=== PATIENT | male | born 1950 | race Caucasian/White ===

== ENCOUNTER → 2016-09-03 | Outpatient (CLI) | payer OTHER | LOC: DACC 17:18 | PROVIDERS: ATTEND Physician Assistant | DX: B69.89 Cysticercosis of other sites (principal) | CPT/HCPCS: 87070; 87077; 87186; 87205 ==

== ENCOUNTER 2018-04-27 20:01 | Emergency (ER) | payer MEDICARE, OTHER ==
[2018-04-27 21:23] LABS: ABSOLUTE BASOPHILS # (AUTO) 0.1 10^3/uL (0.0-0.2); ABSOLUTE EOSINOPHILS # (AUTO) 0.1 10^3/uL (0.0-0.6); ABSOLUTE LYMPHOCYTES (AUTO) 2.5 10^3/uL (0.5-4.7); ABSOLUTE MONOCYTES (AUTO) 0.5 10^3/uL (0.1-1.4); ABSOLUTE NEUT (AUTO) 4.8 10^3/uL (1.7-8.2); BASOPHILS % (AUTO) 1.5 % (0-2); EOSINOPHILS % (AUTO) 1.2 % (0-6); HEMATOCRIT 42.2 % (37.9-51.0); HEMOGLOBIN 15.1 g/dL (13.5-17.0); LYMPHOCYTES % (AUTO) 30.5 % (13-45); MEAN CORPUSCULAR HEMOGLOBIN 29.4 pg (27.0-33.4); MEAN CORPUSCULAR HGB CONC 35.8 g/dL (32.0-36.0); MEAN CORPUSCULAR VOLUME 82 fl (80-97); MONOCYTES % (AUTO) 6.6 % (3-13); PLATELET COUNT 227 10^3/uL (150-450); RED BLOOD COUNT 5.13 10^6/uL (4.35-5.55); RED CELL DISTRIBUTION WIDTH 14.1 % (11.5-14.0); SEGMENTED NEUTROPHILS % (AUTO) 60.2 % (42-78); TOTAL CELLS COUNTED % (AUTO) 100 %
[2018-04-27 21:29] LABS: APPEARANCE,URINE CLEAR; BILIRUBIN,URINE NEGATIVE (NEGATIVE); COLOR,URINE YELLOW; GLUCOSE, URINE NEGATIVE (NEGATIVE); KETONES,URINE NEGATIVE (NEGATIVE); LEUKOCYTE ESTERASE,URINE NEGATIVE (NEGATIVE); NITRITE,URINE NEGATIVE (NEGATIVE); PROTEIN,URINE NEGATIVE (NEGATIVE); URINE SPECIFIC GRAVITY 1.029
[2018-04-27 21:33] LABS: ALANINE AMINOTRANSFERASE 25 U/L (21-72); ALBUMIN 4.2 g/dL (3.5-5.0); ALKALINE PHOSPHATASE 94 U/L (38-126); ANION GAP 11 (5-19); ASPARTATE AMINO TRANSFERASE 26 U/L (17-59); BILIRUBIN,DIRECT 0.4 mg/dL (0.0-0.4); BILIRUBIN,TOTAL 1.4 mg/dL (0.2-1.3); BLOOD UREA NITROGEN 18 mg/dL (7-20); CALCIUM 9.4 mg/dL (8.4-10.2); CARBON DIOXIDE 30 mmol/L (22-30); CHLORIDE 103 mmol/L (98-107); GLUCOSE 132 mg/dL (75-110); POTASSIUM 3.7 mmol/L (3.6-5.0); SODIUM 144.2 mmol/L (137-145); TOTAL PROTEIN 7.2 g/dL (6.3-8.2)
[2018-04-27] MEDS ORDERED: ONDANSETRON HCL INJ/PF 4 MG/2 ML SDV IV ONE (22:00)
[2018-04-27] MEDS ORDERED: HYDROMORPHONE HCL INJ/PF 2 MG/ML AMPULE IV ONE (22:00)
--- NOTE | 2018-04-27 22:54 | RADIOLOGY REPORT (SQ) ---
EXAM DESCRIPTION: CT ABDOMEN PELVIS WITH IV CONTRAST COMPLETED DATE/TME: 04/27/2018 21:59 CLINICAL HISTORY: 67 years, Male, r flank pain COMPARISON: None. TECHNIQUE: 618 Images stored on PACS. All CT scanners at this facility use dose modulation, iterative reconstruction, and/or weight based dosing when appropriate to reduce radiation dose to as low as reasonably achievable (ALARA). [facility]: Dose Right [facility]: CareDose [facility]: Dose Right [facility]: Teradose 4D [facility]: WorldWinger LIMITATIONS: None. FINDINGS: The heart appears mildly enlarged. Limited evaluation of the lung bases is otherwise unremarkable. Osseous structures of the abdomen/pelvis are grossly intact. Degenerative changes of the lumbar spine. Pars defects at the L5-S1 level with grade 1 spondylolisthesis. Fatty infiltrative change to the liver. No focal liver lesions. The gallbladder is present, slightly contracted. Gallstones are suggested. The spleen, adrenal glands, pancreas, kidneys are unremarkable. Moderate atheromatous change. No evidence for bowel obstruction. No free air or free fluid. The appendix is not well seen. No pericecal inflammation. IMPRESSION: Fatty infiltrative change to the liver. Moderate atheromatous change. Cholelithiasis. TECHNICAL DOCUMENTATION: Quality ID # 436: Final reports with documentation of one or more dose reduction techniques (e.g., Automated exposure control, adjustment of the mA and/or kV according to patient size, use of iterative reconstruction technique) 2010 [employer]- All Rights Reserved
--- NOTE | 2018-04-28 01:03 | RADIOLOGY REPORT (SQ) ---
EXAM DESCRIPTION: US ABDOMEN LIMITED COMPLETED DATE/TME: 04/27/2018 23:08 CLINICAL HISTORY: 67 years, Male, right flank pain COMPARISON: CT today's date TECHNIQUE: Limited ultrasound of the right upper quadrant LIMITATIONS: None. FINDINGS: Echogenic appearance to the liver consistent with fatty infiltrative change. Mobile, shadowing stones within the gallbladder lumen. No gallbladder wall thickening or pericholecystic fluid. The CBD measures 1.7 mm. Visualized portions of the right kidney are unremarkable. No ascites in the right upper quadrant. The visualized abdominal aorta is unremarkable. Pancreas not well seen due to bowel gas. IMPRESSION: Fatty infiltrative change to the liver. Cholelithiasis. No sonographic evidence for cholecystitis 2010 [employer]- All Rights Reserved
--- NOTE | 2018-04-28 01:27 | ER Document Report ---
ED General - General Chief Complaint: Flank Pain Stated Complaint: LOWER BACK PAIN Time Seen by Provider: 04/27/18 21:25 Mode of Arrival: Ambulatory Information source: Patient, Relative, [facility] Records Notes: 67-year-old male with atrial fibrillation, hypertension, previous kidney stones presents with complaint of right flank pain that started 3 days prior to arrival with worsening of pain today. Patient describes the pain as stabbing, constant and associated with nausea but no vomiting. Patient denies any injury including lifting or falling. He denies any fever, chills, chest pain, shortness of breath. He denies any aggravating or relieving factors. He has tried ice, heat without relief. He has tried [id number] Tylenol without relief. TRAVEL OUTSIDE OF THE [place] IN LAST 30 DAYS: No - HPI Onset: Other Onset/Duration: Gradual, Persistent, Worse Quality of pain: Stabbing, Throbbing Severity: Moderate Associated symptoms: Nausea. denies: Chest pain, Diarrhea, Fever, Headache, Vomiting, Shortness of breath, Sweating Exacerbated by: Denies Relieved by: Denies Similar symptoms previously: Yes Recently seen / treated by doctor: No - Related Data Allergies/Adverse Reactions: No Known Allergies Allergy (Unverified 04/09/11 03:21) Past Medical History - General Information source: Patient - Social History Smoking Status: Never Smoker Chew tobacco use (# tins/day): No Frequency of alcohol use: None Drug Abuse: None Lives with: Spouse/Significant other Family History: Reviewed & Not Pertinent Patient has suicidal ideation: No Patient has homicidal ideation: No - Past Medical History Cardiac Medical History: Reports: Hx Atrial Fibrillation, Hx Coronary Artery Disease, Hx Hypercholesterolemia, Hx Hypertension Pulmonary Medical History: Reports: Hx Pneumonia Renal/ Medical History: Reports: Hx Kidney Stones. Denies: Hx Peritoneal Dialysis Review of Systems - Review of Systems Notes: REVIEW OF SYSTEMS: CONSTITUTIONAL : Denies fever, chills, or sweats. Denies recent illness. Denies weight loss, recent hospitalizations. EENT: Denies visual changes, eye pain. Denies sore throat, oral lesions, difficulty swallowing. CARDIOVASCULAR: Denies chest pain. Denies palpitations. Denies lower extremity edema. RESPIRATORY: Denies cough. Denies shortness of breath, wheezing. GASTROINTESTINAL: Denies abdominal pain or distention. Denies nausea, vomiting , or diarrhea. Denies blood in vomitus, stools, or per rectum. Denies black, tarry stools. Denies constipation. GENITOURINARY: Denies difficulty urinating, painful urination, frequency, blood in urine, testicular pain or penile discharge. MUSCULOSKELETAL: Denies neck pain or stiffness. Denies joint pain or swelling. SKIN: Denies rash, lesions or sores. HEMATOLOGIC : Denies easy bruising or bleeding. LYMPHATIC: Denies swollen glands. NEUROLOGICAL: Denies confusion or altered mental status. Denies loss of consciousness. Denies dizziness or lightheadedness. Denies headache. Denies weakness or paralysis. Denies problems difficulty with ambulation, slurred speech. Denies sensory loss, numbness, or tingling. Denies seizures. PSYCHIATRIC: Denies anxiety or stress. Denies depression, suicidal ideation, or Physical Exam - Vital signs Vitals: Temp Pulse Resp BP Pulse Ox 97.7 F 94 18 149/82 H 96 04/27/18 20:15 04/27/18 20:15 04/27/18 20:15 04/27/18 20:15 04/27/18 20:15 - Notes Notes: PHYSICAL EXAMINATION: GENERAL: Well-appearing, well-nourished and in no acute distress. HEAD: Atraumatic, normocephalic. EYES: Pupils equal round and reactive to light, extraocular movements intact, sclera anicteric, conjunctiva are normal. ENT: Nares patent, oropharynx clear without exudates. Moist mucous membranes. NECK: Normal range of motion, supple without lymphadenopathy LUNGS: Breath sounds clear to auscultation bilaterally and equal. No wheezes rales or rhonchi. HEART: Regular rate and rhythm without murmurs ABDOMEN: Soft, nontender, nondistended abdomen. No guarding, no rebound. No masses appreciated. Musculoskeletal: Normal range of motion, no pitting or edema. No cyanosis. Tenderness along the paraspinal musculature of the lumbar spine on the right. No reproducible CVA tenderness. No rash. NEUROLOGICAL: Cranial nerves grossly intact. Normal speech, normal gait. Normal sensory, motor exams PSYCH: Normal mood, normal affect. SKIN: Warm, Dry, normal turgor, no rashes or lesions noted. Course - Re-evaluation Re-evalutation: Laboratory 04/27/18 04/27/18 04/27/18 21:05 21:05 21:05 WBC 8.0 RBC 5.13 Hgb 15.1 Hct 42.2 MCV 82 MCH 29.4 MCHC 35.8 RDW 14.1 H Plt Count 227 Seg Neutrophils % 60.2 Lymphocytes % 30.5 Monocytes % 6.6 Eosinophils % 1.2 Basophils % 1.5 Absolute Neutrophils 4.8 Absolute Lymphocytes 2.5 Absolute Monocytes 0.5 Absolute Eosinophils 0.1 Absolute Basophils 0.1 Sodium 144.2 Potassium 3.7 Chloride 103 Carbon Dioxide 30 Anion Gap 11 BUN 18 Creatinine 0.83 Est GFR ( Amer) > 60 Est GFR (Non-Af Amer) > 60 Glucose 132 H Calcium 9.4 Total Bilirubin 1.4 H Direct Bilirubin 0.4 Neonat Total Bilirubin Not Reportable Neonat Direct Bilirubin Not Reportable Neonat Indirect Bili Not Reportable AST 26 ALT 25 Alkaline Phosphatase 94 Total Protein 7.2 Albumin 4.2 Lipase 118.0 Urine Color YELLOW Urine Appearance CLEAR Urine pH 5.0 Ur Specific [place] 1.029 Urine Protein NEGATIVE Urine Glucose (UA) NEGATIVE Urine Ketones NEGATIVE Urine Blood NEGATIVE Urine Nitrite NEGATIVE Urine Bilirubin NEGATIVE Urine Urobilinogen 4.0 H Ur Leukocyte Esterase NEGATIVE Urine WBC (Auto) 1 Squamous Epi Cells Auto <1 Urine Mucus (Auto) MANY Urine Ascorbic Acid NEGATIVE Abdomen/Pelvis CT 04/27/18 21:59 IMPRESSION: Fatty infiltrative change to the liver. Moderate atheromatous change. Cholelithiasis. TECHNICAL DOCUMENTATION: Quality ID # 436: Final reports with documentation of one or more dose reduction techniques (e.g., Automated exposure control, adjustment of the mA and/or kV according to patient size, use of iterative reconstruction technique) 2010 [employer]- All Rights Reserved Abdomen Ultrasound 04/27/18 23:08 IMPRESSION: Fatty infiltrative change to the liver. Cholelithiasis. No sonographic evidence for cholecystitis 2010 [employer]- All Rights Reserved 67-year-old male with atrial fibrillation, hypertension, previous kidney stones presents with complaint of right flank pain that started 3 days prior to arrival with worsening of pain today. Patient describes the pain as stabbing, constant and associated with nausea but no vomiting. Vital signs reviewed upon arrival and within normal limits. Patient does not appear toxic or dehydrated. He does appear to be in significant pain. Exam is significant for right- sided paraspinal tenderness of the lumbar spine. There is no right CVA tenderness. Pain is reproduced with minimal movement. CBC is without leukocytosis or anemia. CMP shows no significant electrolyte abnormalities, normal renal, liver function. Lipase within normal limits. Imaging reveals cholelithiasis without evidence of cholecystitis. Patient also does have a fatty change to his liver. Exam, imaging and labs are not indicative of cholecystitis, pancreatitis, appendicitis, urolithiasis, AAA, ACS. At this time I feel the patient's pain is likely more consistent with musculoskeletal flank pain. 04/28/18 01:25 Patient reevaluated and states that his pain has greatly improved. CT of the abdomen and pelvis were obtained and showed concern for gallstones. Patient was provided a copy of his imaging results and lab work that was performed today. Discussed that gallbladder removal would likely be required at some point but could be done as an outpatient. Advised that he first contact his primary care physician office to see if he requires a referral to surgery. Both and are comfortable with discharge home. Patient was discharged home with pain medication as well as nausea medication. 04/28/18 05:21 - Vital Signs Vital signs: Temp Pulse Resp BP Pulse Ox 97.9 F 71 17 121/76 94 04/28/18 02:05 04/28/18 02:05 04/28/18 02:05 04/28/18 02:05 04/28/18 02:05 - Laboratory Result Diagrams: 04/27/18 21:05 04/27/18 21:05 Laboratory results interpreted by me: 04/27/18 04/27/18 04/27/18 21:05 21:05 21:05 RDW 14.1 H Glucose 132 H Total Bilirubin 1.4 H Urine Urobilinogen 4.0 H - Diagnostic Test Radiology reviewed: Image reviewed, Reports reviewed Discharge - Discharge Clinical Impression: Right flank pain, Fatty liver Cholelithiasis Qualifiers: Cholelithiasis location: gallbladder Cholecystitis presence: without cholecystitis Biliary obstruction: without biliary obstruction Qualified Code(s) : K80.20 - Calculus of gallbladder without cholecystitis without obstruction Hypertension Qualifiers: Hypertension type: unspecified Qualified Code(s): I10 - Essential (primary) hypertension Low back pain Qualifiers: Chronicity: acute Back pain laterality: right Sciatica presence: without sciatica Qualified Code(s): M54.5 - Low back pain Condition: Good Disposition: HOME, SELF-CARE Instructions: Flank Pain ([facility]), Gallbladder Disease ([facility]), Low-Fat Diet ([facility]), Low Back Pain ([facility]) Additional Instructions: Your ultrasound and history is most consistent with symptomatic cholelithiasis. This means that you have stones in your gallbladder that are causing pain when you eat fatty foods. You will likely need to have your gallbladder out in the coming weeks to prevent further pain. The best thing you can do at this time is to avoid fat-containing foods which will trigger your symptoms. Please contact the general surgeon listed in your discharge paperwork at your earliest ability for consultation regarding removal of your gallbladder. Please return to the emergency department if you develop persistent pain in your abdomen that will not go away, persistent vomiting, fever greater than 100.4F, pass out, or have any other symptoms that are concerning to you. Prescriptions: Hydrocodone/Acetaminophen [[place] 5-325 mg Tablet] 1 tab PO Q6H #12 tablet Ondansetron [Zofran Odt 4 mg Tablet] 1 - 2 tab PO Q4H PRN #15 tab.rapdis PRN Reason: For Nausea/Vomiting Forms: Elevated Blood Pressure Referrals: DOMINIK SARABIA MD [Primary Care Provider] - Follow up in 3-5 days JESSICA JUARES MD [ACTIVE STAFF] - Follow up in 3-5 days
[2018-04-28] MEDS ORDERED: FENTANYL CITRATE INJ/PF 100 MCG/2 ML AMPUL IV ONE (01:40)
[2018-04-28 02:15] VITALS: BP 121/76
== END 2018-04-28 02:15 | disposition home or self-care (01) ==
LOC: ER 20:01
DX: K76.0 Fatty (change of) liver, not elsewhere classified (principal); K80.20 Calculus of gallbladder without cholecystitis without obstruction; R10.9 Unspecified abdominal pain; M54.5 Low back pain; R11.0 Nausea; I48.91 Unspecified atrial fibrillation; E78.00 Pure hypercholesterolemia, unspecified; I10 Essential (primary) hypertension; Z87.442 Personal history of urinary calculi
CPT/HCPCS: 99284; 96374; 96375; 36415; 83690; 85025; 80053; 81001; 76705; 74177; J3010; J1170; J2405

== ENCOUNTER 2018-05-04 18:50 | Emergency (ER) | payer MEDICARE, OTHER ==
--- NOTE | 2018-05-04 19:16 | ER Document Report ---
ED Fall - General Mode of Arrival: Medic Information source: Patient TRAVEL OUTSIDE OF THE [place] IN LAST 30 DAYS: No <GONZÁLEZ HAIDER - Last Filed: 05/04/18 19:44> <SYLVIA RAY - Last Filed: 05/04/18 23:15> - General Chief Complaint: Fall Injury Stated Complaint: FALL/BACK, HEAD AND HAND PAIN Time Seen by Provider: 05/04/18 19:01 Notes: 67-year-old male on [place] who presents to the emergency department today after falling off a roof just prior to arrival. Patient states he was helping someone put on a metal roof, it was turning to dusk, and there was moisture in the air which caused the roof to become slippery. Patient states that after falling off the roof he landed on his feet and then fell backwards hitting the back of his head on the ground. Patient states the ground was soft as it has been raining in the area recently so he is not concerned with the impact his head made. Patient complains of pain to the center of his back and his right wrist which was fractured in the . Patient denies any leg/ankle pain. ( GONZÁLEZ HAIDER) - Related data Allergies/Adverse Reactions: No Known Allergies Allergy (Unverified 04/09/11 03:21) Past Medical History - General Information source: Patient - Social History Smoking Status: Unknown if Ever Smoked Cigarette use (# per day): No Frequency of alcohol use: None Drug Abuse: None Lives with: Family Family History: Reviewed & Not Pertinent Patient has suicidal ideation: No Patient has homicidal ideation: No - Past Medical History Cardiac Medical History: Reports: Hx Atrial Fibrillation, Hx Coronary Artery Disease, Hx Hypercholesterolemia, Hx Hypertension Pulmonary Medical History: Reports: Hx Pneumonia Renal/ Medical History: Reports: Hx Kidney Stones Surgical Hx: Negative <GONZÁLEZ HAIDER - Last Filed: 05/04/18 19:44> Review of Systems - Review of Systems Constitutional: No symptoms reported EENT: No symptoms reported Cardiovascular: No symptoms reported Respiratory: No symptoms reported Gastrointestinal: No symptoms reported Genitourinary: No symptoms reported Male Genitourinary: No symptoms reported Musculoskeletal: See HPI, Back pain, Joint pain - right wrist Skin: See HPI, Other - left finger tips, superficial Hematologic/Lymphatic: No symptoms reported Neurological/Psychological: No symptoms reported -: Yes All other systems reviewed and negative <VITALYGONZÁLEZ - Last Filed: 05/04/18 19:44> Physical Exam <VITALYGONZÁLEZ - Last Filed: 05/04/18 19:44> <FLORSYLVIA - Last Filed: 05/04/18 23:15> - Vital signs Vitals: Temp Pulse Resp BP Pulse Ox 97.8 F 82 16 155/93 H 98 05/04/18 18:52 05/04/18 18:52 05/04/18 18:52 05/04/18 18:52 05/04/18 18:52 - Notes Notes: Physical Exam: General: Alert, appears well. HEENT: Normocephalic. Atraumatic. PERRL. Extraocular movements intact. Oropharynx clear. Neck: Supple. Non-tender. Respiratory: No respiratory distress. Clear and equal breath sounds bilaterally. Cardiovascular: Regular rate and rhythm. Abdominal: Normal Inspection. Non-tender. No distension. Normal Bowel Sounds. Back: Tenderness with palpation over the upper lumbar spine and lower thoracic spine. Tenderness with palpation over the right lower lumbar sacral area where his chronic pain is, not worse than baseline today according to him. No deformity or step off. Extremities: Moves all four extremities. Upper extremities: Right wrist is swollen over the ulnar styloid and lateral to that with associated tenderness on palpation. Lower extremities: Normal inspection. No edema. Normal ROM. Neurological: Normal cognition. AAOx4. Normal speech. Psychological: Normal affect. Normal Mood. Skin: Bandaids on left 2-4 fingers with superficial lacerations/abrasions to all digits on LUE. (GONZÁLEZ HAIDER) Course - Diagnostic Test Radiology reviewed: Image reviewed, Reports reviewed - Right wrist x-ray does not show acute fracture. Shows old chronic bony changes from prior trauma. 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 CT scan of the thoracic spine is unremarkable. CT scan of the lumbar spine shows acute 30% compression fracture of L2 without retropulsed fragments. <SYLVIA RAY - Last Filed: 05/04/18 23:15> - Vital Signs Vital signs: Temp Pulse Resp BP Pulse Ox 97.8 F 82 18 123/77 93 05/04/18 18:52 05/04/18 18:52 05/04/18 23:01 05/04/18 23:01 05/04/18 23:01 Procedures - Laceration/Wound Repair Left Distal Finger 2nd digit Time completed: 22:53 Wound length (cm): 2 Wound's Depth, Shape: Into muscle, Irregular, Flap Laceration pre-procedure: Sterile drapes applied, Shur-Clens applied Anesthetic type: 1% Lidocaine Volume Anesthetic (mLs): 6 - Metacarpal block Wound explored: Clean, No foreign body removed Irrigated w/ Saline (mLs): 20 Wound Debrided: Minimal Wound Repaired With: Sutures Suture Size/Type: 5:0 Number of Sutures: 6 Layer Closure?: No Post-procedure wound care: Sterile dressing applied Post-procedure NV exam normal: Yes Complications: No <SYLVIA RAY - Last Filed: 05/04/18 23:15> Discharge <GONZÁLEZ HAIDER - Last Filed: 05/04/18 19:44> <SYLVIA RAY - Last Filed: 05/04/18 23:15> - Discharge Clinical Impression: Fall from roof Qualifiers: Encounter type: initial encounter Qualified Code(s): W13.2XXA - Fall from, out of or through roof, initial encounter Right wrist sprain Qualifiers: Encounter type: initial encounter Qualified Code(s): S63.501A - Unspecified sprain of right wrist, initial encounter Compression fracture of L2 lumbar vertebra Qualifiers: Encounter type: initial encounter Fracture type: closed Qualified Code(s): S32.020A - Wedge compression fracture of second lumbar vertebra, initial encounter for closed fracture Laceration of fingers without complication Qualifiers: Encounter type: initial encounter Qualified Code(s): S61.219A - Laceration without foreign body of unspecified finger without damage to nail, initial encounter Condition: Stable Disposition: HOME, SELF-CARE Additional Instructions: Compression Fracture of the Spine: A vertebra within your spine has been crushed. This is called a "compression fracture." Typically, this type of injury is caused by a sudden bending or compressing force such as an auto accident or a fall. Although painful, the fracture is not serious. You can expect to recover fully within a few weeks. The treatment of this fracture is essentially the same as for a severe back strain. Muscle relaxers or antiinflammatory medication may be prescribed. You should rest in bed for a few days until the pain eases, then begin light activity. A re-check will determine when you are ready to resume work or sports. Ice pack the painful area at first. After you are active again, you may want to apply gentle heat intermittently to relax sore muscles. You can continue with ice packs if you find them helpful in reducing muscle pain. Call the doctor or return at once if you develop radiating pains, muscle weakness, problems with the bladder or bowels, or numbness. Wrist Sprain: Your wrist injury is a sprain. A sprain results from stretching or tearing of the ligaments, usually from a twisting injury. The ligaments will require time and protection in order to heal properly. Many sprains are quite disabling and should be taken seriously. The usual initial treatment of sprains is cold packs, elevation, and rest of the injured area. Your physician has assessed the seriousness of your ligament injury, and has outlined a treatment plan. Understand that this treatment may change, depending on how you progress. If a re-examination was recommended, it is important that you follow up as instructed. Call the doctor any time if there is severe pain, numbness, or loss of function in the injured area. Hand Laceration: Laceration of the fingers can present special problems. It may be difficult to keep the wound dry. Motion of the fingers can disturb the healing edges. Your work may involve exposure to damaging chemicals or water. Keep the wound clean and dry. If you can't keep the cut dry, undisturbed, and free of chemical exposure, please discuss this with the doctor. If any water or chemical gets onto the dressing, remove it, blot the wound dry, then apply a fresh bandage. Dressings should be changed every day. If you feel the stitches pulling as you move the hand, a splint or other form of protection is needed. If any signs of infection occur (swelling, redness, increasing tenderness, red streaks, tender lumps in the armpit, or fever), see the doctor immediately. Take the pain medications as needed. Take a stool softener to prevent constipation. Limit activity until the back is feeling better. A back brace may provide some improvement in your pain and make it easier to get up and down. Use the wrist splint for the next several days to protect your right wrist. Keep the finger wounds clean and dry. Have the sutures removed in 7-10 days. Return sooner if any signs of infection. Follow-up with your primary care provider this week to recheck your back and for pain management as needed. RETURN TO THE EMERGENCY ROOM IF ANY NEW OR WORSENING SYMPTOMS. Prescriptions: Oxycodone HCl/Acetaminophen [Percocet 5-325 mg Tablet] 1 - 2 tab PO ASDIR PRN # 15 tablet PRN Reason: Referrals: DOMINIK SARABIA MD [NO LOCAL MD] - Follow up in 3-5 days Scribe Attestation: 05/04/18 19:23 I personally performed the services described in the documentation, reviewed and edited the documentation which was dictated to the scribe in my presence, and it accurately records my words and actions. (SYLVIA RAY) Scribe Documentation - Scribe Written by Scribe:: Mak Meyer, [id number] acting as scribe for :: Flor <GONZÁLEZ HAIDER - Last Filed: 05/04/18 19:44>
--- NOTE | 2018-05-04 19:53 | RADIOLOGY REPORT (SQ) ---
EXAM DESCRIPTION: WRIST RIGHT 3 VIEWS COMPLETED DATE/TIME: 05/04/2018 7:40 pm REASON FOR STUDY: Fell off roof COMPARISON: None. NUMBER OF VIEWS: Three views. TECHNIQUE: AP, lateral, and oblique radiographic images acquired of the right wrist. LIMITATIONS: None. FINDINGS: MINERALIZATION: Normal. BONES: No acute fracture or dislocation. There is bony deformity of the distal ulna and radius with a separate bony ossicle being identified at the level of the ulnar styloid process consistent with pr evious trauma. There is bony deformity of the 5th metacarpal consistent with previous trauma. SOFT TISSUES: No soft tissue swelling. No foreign body. OTHER: No other significant finding. IMPRESSION: No evidence for acute fracture or dislocation. Bony deformity of the distal ulna, radiu s, and 5th metacarpal consistent with previous trauma. Other findings as noted above. TECHNICAL DOCUMENTATION: JOB ID: [id number] [employer]- All Rights Reserved Reading location - IP/workstation name: [email or web address]
[2018-05-04] MEDS ORDERED: MORPHINE SULFATE 10 MG/ML INJ IV ONE ×2 (20:00→23:05)
[2018-05-04] MEDS ORDERED: ONDANSETRON HCL INJ/PF 4 MG/2 ML SDV IV ONE ×2 (20:00→23:05)
--- NOTE | 2018-05-04 20:05 | RADIOLOGY REPORT (SQ) ---
EXAM DESCRIPTION: CT HEAD WITHOUT COMPLETED DATE/TIME: 05/04/2018 7:47 pm REASON FOR STUDY: Fell off roof,on Xarelto,hit head,pain L-spine T-s COMPARISON: None. TECHNIQUE: Axial images acquired through the brain without intravenous contrast. Images reviewed wi th bone, brain and subdural windows. Additional sagittal and coronal reconstructions were generated. Images stored on PACS. All CT scanners at this facility use dose modulation, iterative reconstruction, and/or weight based d osing when appropriate to reduce radiation dose to as low as reasonably achievable (ALARA). [facility]: Dose Right [facility]: CareDose [facility]: Dose Right [facility]: Teradose 4D [facility]: [employer] RADIATION DOSE: CT Rad equipment meets quality standard of care and radiation dose reduction techniq ues were employed. CTDIvol: 53.2 mGy. DLP: 991 mGy-cm. mGy. LIMITATIONS: None. FINDINGS: VENTRICLES: Normal size and contour. CEREBRUM: No masses. No hemorrhage. No midline shift. No evidence for acute infarction. Normal gra y/white matter differentiation. No areas of low density in the white matter. CEREBELLUM: No masses. No hemorrhage. No alteration of density. No evidence for acute infarction. EXTRAAXIAL SPACES: No fluid collections. No masses. ORBITS AND GLOBE: No intra- or extraconal masses. Normal contour of globe without masses. CALVARIUM: No fracture. PARANASAL SINUSES: There is almost complete opacification of the left sphenoid sinus. SOFT TISSUES: No mass or hematoma. OTHER: No other significant finding. IMPRESSION: No significant intracranial abnormalities were identified. Sinus disease as noted above . Other findings as noted above EVIDENCE OF ACUTE STROKE: NO. COMMENT: Quality ID # 436: Final reports with documentation of one or more dose reduction techniques (e.g., Automated exposure control, adjustment of the mA and/or kV according to patient size, use of iterative reconstruction technique) TECHNICAL DOCUMENTATION: JOB ID: [id number] 1900 [employer]- All Rights Reserved Reading location - IP/workstation name: [email or web address]
--- NOTE | 2018-05-04 20:57 | RADIOLOGY REPORT (SQ) ---
EXAM DESCRIPTION: CT LUMBAR SPINE WITHOUT COMPLETED DATE/TIME: 05/04/2018 7:47 pm REASON FOR STUDY: Fell off roof,on Xarelto,hit head,pain L-spine T-s COMPARISON: None. TECHNIQUE: Axial images acquired through the lumbar spine without intravenous contrast. Images revi ewed with lung, soft tissue and bone windows. Reconstructed coronal and sagittal MPR images reviewed . All images stored on PACS. All CT scanners at this facility use dose modulation, iterative reconstruction, and/or weight based d osing when appropriate to reduce radiation dose to as low as reasonably achievable (ALARA). [facility]: Dose Right [facility]: CareDose [facility]: Dose Right [facility]: Teradose 4D [facility]: [employer] RADIATION DOSE: mGy. LIMITATIONS: None. FINDINGS: SEGMENTATION: Normal. No transitional anatomy. ALIGNMENT: Grade 1 anterolisthesis of L5 on S1. Bilateral pars defects at this level. VERTEBRAL BODIES: Acute compression changes involving the L2 vertebral body with approximately 30% lo ss of height. No retropulsion of fragments into the spinal canal. DISCS: No significant protrusions. Study limited by lack of intrathecal contrast. PEDICLES, TRANSVERSE PROCESSES: No fractures. No dislocation. No acute findings. FACETS, POSTERIOR ELEMENTS: Bilateral pars defects at L5. HARDWARE: None in the spine. VISUALIZED RIBS: No fractures. SOFT TISSUES: No significant or acute finding in adjacent soft tissues. OTHER: No other significant finding. IMPRESSION: Acute compression changes at L2 as described. Anterolisthesis of L5 on S1 with bilatera l pars defects. TECHNICAL DOCUMENTATION: JOB ID: [id number] Quality ID # [id number]: Final reports with documentation of one or more dose reduction techniques (e.g., Au tomated exposure control, adjustment of the mA and/or kV according to patient size, use of iterative reconstruction technique) 2010 [employer]- All Rights Reserved Reading location - IP/workstation name: [email or web address]
--- NOTE | 2018-05-04 21:02 | RADIOLOGY REPORT (SQ) ---
EXAM DESCRIPTION: CT THORACIC SPINE WITHOUT COMPLETED DATE/TIME: 05/04/2018 7:47 pm REASON FOR STUDY: Fell off roof,on Xarelto,hit head,pain L-spine T-s COMPARISON: None. TECHNIQUE: Axial images acquired through the thoracic spine without intravenous contrast. Images re viewed with lung, soft tissue and bone windows. Reconstructed coronal and sagittal MPR images review ed. Images stored on PACS. All CT scanners at this facility use dose modulation, iterative reconstruction, and/or weight based d osing when appropriate to reduce radiation dose to as low as reasonably achievable (ALARA). [facility]: Dose Right [facility]: CareDose [facility]: Dose Right [facility]: Teradose 4D [facility]: [employer] RADIATION DOSE: CT Rad equipment meets quality standard of care and radiation dose reduction techniq ues were employed. CTDIvol: 93.2 mGy. DLP: 3838 mGy-cm. mGy. LIMITATIONS: None. FINDINGS: VISUALIZED LUNGS: No acute opacities. No pneumothorax. SOFT TISSUES: No soft tissue swelling. No masses. VERTEBRAL BODIES: No fractures. No dislocation. No acute findings. DISCS: Disc spaces are fairly well maintained. There are bridging osteophytes extensively in the mid and lower thoracic spine. ALIGNMENT: Normal. TRANSVERSE PROCESSES, POSTERIOR ELEMENTS: No fractures. No dislocation. No acute findings. HARDWARE: None in the spine. VISUALIZED RIBS: No fractures. OTHER: No other significant finding. IMPRESSION: Thoracic spondylosis. No acute findings. TECHNICAL DOCUMENTATION: JOB ID: [id number] Quality ID # [id number]: Final reports with documentation of one or more dose reduction techniques (e.g., Au tomated exposure control, adjustment of the mA and/or kV according to patient size, use of iterative reconstruction technique) 2010 [employer]- All Rights Reserved Reading location - IP/workstation name: [email or web address]
[2018-05-04] MEDS ORDERED: LIDOCAINE 1% INJ-PF (10 MG/ML) 30 ML SDV INJ ONE (21:17)
[2018-05-04] MEDS ORDERED: HYDROCODONE/ACETAMINOPHEN 5-325 MG (6 TAB/ER DISP) PO PRN (23:04)
[2018-05-04 23:14] VITALS: BP 123/77
== END 2018-05-04 23:37 | disposition home or self-care (01) ==
LOC: ER 18:50
PROC: 0HQGXZZ Repair Left Hand Skin, External Approach (ICD-10-PCS; principal; 2018-05-04)
DX: S32.020A Wedge compression fracture of second lumbar vertebra, initial encounter for closed fracture (principal); S61.219A Laceration without foreign body of unspecified finger without damage to nail, initial encounter; S63.501A Unspecified sprain of right wrist, initial encounter; M54.9 Dorsalgia, unspecified; R51 Headache; W13.2XXA Fall from, out of or through roof, initial encounter; M25.531 Pain in right wrist; I25.10 Atherosclerotic heart disease of native coronary artery without angina pectoris; I10 Essential (primary) hypertension
CPT/HCPCS: 96376; 99284; 96374; 96375; 73110; 70450; 72128; 72131; 12001; J3490; J2270; J2405; A9270

== ENCOUNTER 2019-06-18 15:21 | Emergency (ER) | payer MEDICARE, OTHER ==
[2019-06-18] MEDS ORDERED: NITROGLYCERIN 0.4 MG/TAB 25 TAB/BOTTLE SL ONE (16:08)
[2019-06-18] MEDS ORDERED: ASPIRIN 81 MG TABLET, CHEWABLE PO ONE (16:08)
--- NOTE | 2019-06-18 16:10 | ER Document Report ---
ED Medical Screen (RME) - General Chief Complaint: Chest Pain Stated Complaint: CHEST PAIN Time Seen by Provider: 06/18/19 16:03 Primary Care Provider: DEIDRE SMITH MD [Primary Care Provider] - Follow up as needed Notes: Patient is 69-year-old male who presents to the emergency department with a chief complaint of chest pain. His pain started around 1430 this afternoon after eating a turkey sandwich. He states that the pain is in the middle of his chest and it also radiates to the right side of his jaw. He states that he is having some tingling in his right arm. Patient has a history of atrial fibrillation, hypertension, and was on Xarelto, but stopped his Xarelto in April due to the cost. Denies any fever or cough. Exam: S1, S2. Breath sounds clear throughout. I have greeted and performed a rapid initial assessment of this patient. A comprehensive ED assessment and evaluation of the patient, analysis of test results and completion of medical decision making process will be conducted by an additional ED providers. TRAVEL OUTSIDE OF THE [place] IN LAST 30 DAYS: No - Related Data Allergies/Adverse Reactions: No Known Allergies Allergy (Verified 06/18/19 15:48) Home Medications: ASA Past Medical History - Social History Chew tobacco use (# tins/day): No Frequency of alcohol use: None Drug Abuse: None - Past Medical History Cardiac Medical History: Reports: Hx Atrial Fibrillation, Hx Coronary Artery Disease, Hx Hypercholesterolemia, Hx Hypertension Pulmonary Medical History: Reports: Hx Pneumonia Renal/ Medical History: Reports: Hx Kidney Stones. Denies: Hx Peritoneal Dialysis Physical Exam - Vital signs Vitals: Temp Pulse Resp BP Pulse Ox 98.5 F 90 20 154/98 H 96 06/18/19 15:38 06/18/19 15:38 06/18/19 15:38 06/18/19 15:38 06/18/19 15:38 Course - Vital Signs Vital signs: Temp Pulse Resp BP Pulse Ox 98.5 F 90 20 154/98 H 96 06/18/19 15:38 06/18/19 15:38 06/18/19 15:38 06/18/19 15:38 06/18/19 15:38 Doctor's Discharge - Discharge Referrals: DEIDRE SMITH MD [Primary Care Provider] - Follow up as needed
[2019-06-18 16:58] LABS: ABSOLUTE BASOPHILS # (AUTO) 0.1 10^3/uL (0.0-0.2); ABSOLUTE EOSINOPHILS # (AUTO) 0.1 10^3/uL (0.0-0.6); ABSOLUTE LYMPHOCYTES (AUTO) 1.9 10^3/uL (0.5-4.7); ABSOLUTE MONOCYTES (AUTO) 0.4 10^3/uL (0.1-1.4); ABSOLUTE NEUT (AUTO) 5.1 10^3/uL (1.7-8.2); BASOPHILS % (AUTO) 1.3 % (0-2); EOSINOPHILS % (AUTO) 0.8 % (0-6); HEMATOCRIT 42.9 % (37.9-51.0); HEMOGLOBIN 15.2 g/dL (13.5-17.0); LYMPHOCYTES % (AUTO) 24.6 % (13-45); MEAN CORPUSCULAR HEMOGLOBIN 29.3 pg (27.0-33.4); MEAN CORPUSCULAR HGB CONC 35.5 g/dL (32.0-36.0); MEAN CORPUSCULAR VOLUME 83 fl (80-97); MONOCYTES % (AUTO) 4.9 % (3-13); PLATELET COUNT 202 10^3/uL (150-450); RED CELL DISTRIBUTION WIDTH 13.5 % (11.5-14.0); SEGMENTED NEUTROPHILS % (AUTO) 68.4 % (42-78); TOTAL CELLS COUNTED % (AUTO) 100 %; WHITE BLOOD COUNT 7.5 10^3/uL (4.0-10.5)
[2019-06-18 17:07] LABS: INTERNATIONAL RATION (INR) 1.02; PROTHROMBIN TIME 13.4 SEC (11.4-15.4)
[2019-06-18 17:08] LABS: PARTIAL THROMBOPLASTIN TIME 34.4 SEC (23.5-35.8)
--- NOTE | 2019-06-18 17:37 | RADIOLOGY REPORT (SQ) ---
EXAM DESCRIPTION: CHEST SINGLE VIEW COMPLETED DATE/TIME: 06/18/2019 5:27 pm REASON FOR STUDY: chest pain COMPARISON: 04/09/2011 TECHNIQUE: Single frontal radiographic view of the chest acquired. NUMBER OF VIEWS: One view. LIMITATIONS: None. FINDINGS: LUNGS AND PLEURA: No pneumothorax. No consolidation or pleural effusion. MEDIASTINUM AND HILAR STRUCTURES: Stable. HEART AND VASCULAR STRUCTURES: Stable. BONES: No acute findings. HARDWARE: None in the chest. OTHER: No other significant finding. IMPRESSION: NO ACUTE FINDINGS. TECHNICAL DOCUMENTATION: JOB ID: [id number] [place]-72 2010 [employer]- All Rights Reserved Reading location - IP/workstation name: [email or web address]
[2019-06-18 18:05] LABS: ALBUMIN 4.2 g/dL (3.5-5.0); ALKALINE PHOSPHATASE 114 U/L (38-126); ANION GAP 10 (5-19); ASPARTATE AMINO TRANSFERASE 26 U/L (17-59); BILIRUBIN,DIRECT 0.3 mg/dL (0.0-0.4); BLOOD UREA NITROGEN 14 mg/dL (7-20); CARBON DIOXIDE 25 mmol/L (22-30); CHLORIDE 105 mmol/L (98-107); CREATINE KINASE 85 U/L (55-170); GLUCOSE 212 mg/dL (75-110); TOTAL PROTEIN 7.3 g/dL (6.3-8.2)
--- NOTE | 2019-06-18 19:54 | EKG REPORT ---
SEVERITY:- ABNORMAL ECG - ATRIAL FIBRILLATION RIGHT BUNDLE BRANCH BLOCK SUSPICIOUS ST ELEVATION LATERAL LEADS, CLINICAL CORRELATION NEEDED. : Confirmed by: Dwain Junior MD 18-Jun-2019 19:53:46
--- NOTE | 2019-06-18 20:00 | EKG REPORT ---
SEVERITY:- ABNORMAL ECG - ATRIAL FIBRILLATION, V-RATE 61-83 RIGHT BUNDLE BRANCH BLOCK CONSIDER ACUTE LATERAL WALL [place] : Confirmed by: Dwain Junior MD 18-Jun-2019 20:00:19
[2019-06-18] MEDS ORDERED: HEPARIN SODIUM,PORCINE/D5W 25,000 UNIT/250 ML RTUINJ IV PRN (21:04)
[2019-06-18] MEDS ORDERED: HEPARIN SOD (PORCINE) 1,000 UNIT/ML 10 ML VIAL IV ONE (21:04)
[2019-06-18] MEDS ORDERED: ATORVASTATIN CALCIUM 80 MG TABLET PO ONE (21:06)
--- NOTE | 2019-06-18 21:13 | ER Document Report ---
ED Cardiac - General Chief Complaint: Chest Pain Stated Complaint: CHEST PAIN Time Seen by Provider: 06/18/19 16:03 Primary Care Provider: DEIDRE SMITH MD [Primary Care Provider] - Follow up as needed Information source: Patient Notes: Patient is a pleasant 69-year-old male who states that he had sudden sharp chest pain at 2 PM. States that it made him nauseated, made him vomit, short of sangeeta th and diaphoretic. States that he was burping and the pain eased off. He has had pain like this before back in 2001. He had a cardiac catheterization at that time and there is a small vessel occlusion so no stent was placed per the patient. He sees Dr. Cedeno at [facility]. Patient has a history of A. fib. He is supposed to take Xarelto but cannot afford it. Denies any trauma. States that the pain had eased off by the time he got here. Received 1 sublingual nitroglycerin which he said did not change any of his symptoms. No cough or fever. No back pain. Patient has some pain into his right jaw but that is resolved at this time. He has a history of high blood pressure and A. f ib. TRAVEL OUTSIDE OF THE [place] IN LAST 30 DAYS: No - HPI Patient complains to provider of: Chest pain Was the onset of pain: Sudden Chest pain location: Substernal Quality of pain: Severe Chest pain radiation location: Right jaw Severity now: Mild Severity at worst: Severe Pain level currently: 1 Cardiac risk factors: Hypertension, Dyslipidemia Associated symptoms: Diaphoresis, Nausea/vomiting Exacerbated by: Denies Relieved by: Nothing Similar symptoms previously: Yes Recently seen / treated by doctor: No - Related Data Allergies/Adverse Reactions: No Known Allergies Allergy (Verified 06/18/19 15:48) Home Medications: ASA Past Medical History - General Information source: Patient - Social History Smoking Status: Never Smoker Chew tobacco use (# tins/day): No Frequency of alcohol use: None Drug Abuse: None Family History: Reviewed & Not Pertinent Patient has suicidal ideation: No Patient has homicidal ideation: No - Past Medical History Cardiac Medical History: Reports: Hx Atrial Fibrillation, Hx Coronary Artery Disease, Hx Hypercholesterolemia, Hx Hypertension Pulmonary Medical History: Reports: Hx Pneumonia Renal/ Medical History: Reports: Hx Kidney Stones. Denies: Hx Peritoneal Dialysis Review of Systems - Review of Systems -: Yes All other systems reviewed and negative Physical Exam - Vital signs Vitals: Temp Pulse Resp BP Pulse Ox 98.5 F 90 20 154/98 H 96 06/18/19 15:38 06/18/19 15:38 06/18/19 15:38 06/18/19 15:38 06/18/19 15:38 Interpretation: Normal - General General appearance: Appears well, Alert - HEENT Head: Normocephalic, Atraumatic Eyes: Normal Pupils: PERRL - Respiratory Respiratory status: No respiratory distress Chest status: Nontender Breath sounds: Normal Chest palpation: Normal - Cardiovascular Rhythm: Irregularly irregular Heart sounds: Normal auscultation Murmur: No - Abdominal Inspection: Normal Distension: No distension Bowel sounds: Normal Tenderness: Nontender Organomegaly: No organomegaly - Back Back: Normal, Nontender - Extremities General upper extremity: Normal inspection, Nontender, Normal color, Normal ROM, Normal temperature General lower extremity: Normal inspection, Nontender, Normal color, Normal ROM, Normal temperature, Normal weight bearing. No: Tadeo's sign - Neurological Neuro grossly intact: Yes Cognition: Normal Orientation: AAOx4 Newell Coma Scale Eye Opening: Spontaneous Kayla Coma Scale Verbal: Oriented Kayla Coma Scale Motor: Obeys Commands Newell Coma Scale Total: 15 Speech: Normal Motor strength normal: LUE, RUE, LLE, RLE Sensory: Normal - Psychological Associated symptoms: Normal affect, Normal mood - Skin Skin Temperature: Warm Skin Moisture: Dry Skin Color: Normal Course - Re-evaluation Re-evalutation: 19:45 Initial troponin negative. EKG showing right bundle branch block with no acute ST changes. Repeat troponin pending. Repeat EKG with possible elevation in iso lated lead. Patient had received sublingual nitroglycerin without any change. He sees Dr. Cedeno at [facility]. Call placed to [facility]. Wait for repeat troponin and then can consider transfer. Patient states that he feels a very mild ache but he thinks it was just from vomiting earlier. 20:50 Repeat troponin is elevated to 2.8. Call placed back to [facility]. Patient will be accepted. 06/18/19 21:13 Patient now with worsening chest pain. Nitroglycerin ordered. Call placed back to [facility] and will bring to ICU for unstable angina 06/18/19 21:30 Call placed to [facility] care Will be able to fly patient. And will be here in about 15 minutes. 06/18/19 21:45 Patient updated and is agreeable to this plan. Medically stable for transfer. He has received heparin bolus is on a heparin drip. Patient has received Lipitor 80 mg p.o. He has received metoprolol 2.5 mg IV. He is currently on a nitroglycerin drip at 10 mics per minute. 06/18/19 22:07 Transport is here for patient. Medically stable. - Vital Signs Vital signs: Temp Pulse Resp BP Pulse Ox 97 F L 90 22 H 144/96 H 94 06/18/19 21:54 06/18/19 15:38 06/18/19 21:54 06/18/19 21:54 06/18/19 21:54 - Laboratory Result Diagrams: 06/18/19 16:35 06/18/19 16:35 Laboratory results interpreted by me: 06/18/19 16:35 Glucose 212 H - Diagnostic Test Radiology reviewed: Reports reviewed - EKG Interpretation by Me Rhythm: A.Fib Additional EKG results interpreted by me: 06/18/19 15:28 Atrial fibrillation at 76 with right bundle branch block Minimal chest pain 06/18/19 17:40 Atrial fibrillation at [address] elevation in 2 3 and V6 Patient states minimal pain 06/18/19 20:50 A. fib at 77 with right bundle branch block Minimal pain 06/18/19 21:23 A. fib at 76 withRight bundle branch block, questionable ST elevation in 2 3 and aVF Worsening chest pain Critical Care Note - Critical Care Note Total time excluding time spent on procedures (mins): 45 - Evaluation and management of chest pain with multiple re-evaluations, coordination of transfer, consultation with accepting, discussion with patient and family Discharge - Discharge Clinical Impression: Unstable angina Condition: Stable Disposition: [facility] Referrals: DEIDRE SMITH MD [Primary Care Provider] - Follow up as needed
[2019-06-18] MEDS ORDERED: NITROGLYCERIN/D5W 50 MG/250 ML RTUINJ IV PRN (21:14)
[2019-06-18] MEDS ORDERED: NITROGLYCERIN/D5W 50 MG/250 ML RTUINJ IV ONE (21:15)
[2019-06-18] MEDS ORDERED: METOPROLOL TARTRATE PF/INJ 5 MG/5 ML SDV IV ONE (21:33)
[2019-06-18 22:03] VITALS: BP 144/96
--- NOTE | 2019-06-19 08:44 | EKG REPORT ---
SEVERITY:- ABNORMAL ECG - ATRIAL FIBRILLATION RIGHT BUNDLE BRANCH BLOCK CONSIDER ACUTE LATERAL [place] : Confirmed by: Dwain Junior MD 19-Jun-2019 08:44:04
--- NOTE | 2019-06-19 08:45 | EKG REPORT ---
SEVERITY:- ABNORMAL ECG - ATRIAL FIBRILLATION RIGHT BUNDLE BRANCH BLOCK CONASIDER ACUTE LATERAL [place] : Confirmed by: Dwain Junior MD 19-Jun-2019 08:44:40
== END 2019-06-18 22:10 | disposition short-term general hospital (02) ==
LOC: ER 15:21
DX: I20.0 Unstable angina (principal); R07.9 Chest pain, unspecified; R11.2 Nausea with vomiting, unspecified; E78.00 Pure hypercholesterolemia, unspecified; I10 Essential (primary) hypertension; I48.91 Unspecified atrial fibrillation; Z87.442 Personal history of urinary calculi
CPT/HCPCS: 93005; 96376; 99291; 96375; 96365; 36415; 82550; 83735; 85025; 85610; 85730; 80053; 84484; 71045; 93010; J1644 ×2; A9270 ×3; J3490 ×2